=== PATIENT | female | born 1980 | race Caucasian/White ===

== ENCOUNTER 2018-06-14 14:50 | Inpatient (IN) | payer BC ==
[2018-06-14] MEDS ORDERED: Penicillin G Potassium IV* 5,000,000 UNITS in NS 0.9% 100 ML* 100 ML IVPB ONE (15:39)
[2018-06-14] MEDS ORDERED: Oxytocin in LR* 20 UNITS/1,000 ML BAG IVPB SCH ×2 (16:00→23:00)
[2018-06-14 16:23] LABS: ABS Basophils 0.1 10^3/ul (0-0.2); ABS Eosinophils 0.1 10^3/ul (0-0.6); ABS Lymphocytes 2.2 10^3/ul (1.0-4.8); ABS Monocytes 0.6 10^3/ul (0-0.8); ABS Neutrophils 9.4 10^3/ul (1.5-7.7); ABS Nucleated RBC 0 10^3/ul; Eosinophil % 0.4 % (0-6); Hematocrit 35 % (35-47); Hemoglobin 12.5 g/dl (12.0-16.0); Lymphocyte % 17.8 % (25-47); Mean Corpuscular HGB Conc 36 g/dl (31-36); Mean Corpuscular Hemoglobin 32 pg (27-31); Mean Corpuscular Volume 91 fL (80-97); Mean Platelet Volume 7.8 fL (7.4-10.4); Nucleated Red Blood Cells % 0; Platelet Count 310 10^3/ul (150-450); Red Blood Count 3.86 10^6/ul (4.00-5.40); Red Cell Distribution Width 14 % (10.5-15); White Blood Count 12.4 10^3/ul (3.5-10.8)
--- NOTE | 2018-06-14 18:27 | HP ---
General Information - Reason for Visit Scheduled induction of labor for postdates - General Information Maternal Age: 37 Grav: 3 Para: 2 SAB: 0 IEA: 0 Estimated Due Date: 06/06/18 Determined By: LMP Maternal Blood Type and Rh: A Positive - Results this Serology/RPR Result: Non-Reactive Rubella Result: Immune HBsAg Result: Negative HIV Result: Negative GBS Culture Result: Positive Past Medical History Delivery History: Hx Uncomplicated Vaginal Delivery, See Records Pertinent Past Medical History: See Records - essential thrombocythemia Pertinent Past Surgical History: None Pertinent Family History: See Records - father- myelofibrosis, Sister , Hodgkin's Lymphoma - Antepartal Records Antepartal Records: Reviewed, Complicated by: - essential thrombocythemia, GBS bacteriuria Review of Systems Constitutional: Comfortable CV Complaint: No Respiratory: Shortness of Breath: No Gastrointestinal: No Nausea/Vomiting, Normal Bowel Movement Genitourinary: No Dysuria, No Bleeding, No Leaking Fluid Musculoskeletal: No Complaint, No Epigastric Pain Neurological: No Headache, No Visual Changes Movement: Normal Exam Allergies/Adverse Reactions: Allergies No Known Allergies Allergy (Verified 06/14/18 15:33) T-97.4, P-65, R-18, BP-100/57, O2-99% Lab Values - Entire Visit: Laboratory Tests 06/14/18 06/14/18 16:10 16:10 WBC 12.4 H RBC 3.86 L Hgb 12.5 Hct 35 MCV 91 MCH 32 H MCHC 36 RDW 14 Plt Count 310 MPV 7.8 Neut % (Auto) 75.9 Lymph % (Auto) 17.8 L Aiken % (Auto) 5.2 Eos % (Auto) 0.4 Baso % (Auto) 0.7 Absolute Neuts (auto) 9.4 H Absolute Lymphs (auto) 2.2 Absolute Monos (auto) 0.6 Absolute Eos (auto) 0.1 Absolute Basos (auto) 0.1 Absolute Nucleated RBC 0 Nucleated RBC % 0 Blood Type A Positive Antibody Screen Negative - Measurements Height: 5 ft 10 in Weight: 82.554 kg Weight in lbs: 182.651015 Body Mass Index (BMI): 26.1 Pre- Weight: 70.307 kg Weight Gained This : 27 lbs and 0 ozs - Exam Breast: Breast Exam Deferred CVA: No CVA Tenderness Extremities: No Edema Heart: Normal Rhythm/Heart Sounds HEENT: No Significant Findings Lungs: Clear Bilaterally Rectal: Rectal Exam Deferred Reflexes: DTR 2+ Thyroid: No Thyromegaly - Abdominal Exam Abdomen Exam: Non-Tender, Fundal Height Consistent with Dates - Ultrasound/Biophysical Profile Ultrasound Status: Not Done Targeted Exam Findings See L&D Outpatient Visit Provider Note for Findings: N/A Estimated Weight: 8.5# Cervical Exam: 2cm Effacement: 80% Station: -1 Presenting Part: Vertex Membrane Status: Intact Bleeding/Discharge: None EFM Findings - External Monitor Findings Baseline Heart Rate: 140 External Monitor Findings: Accelerations Present, No Pattern of Variable or Late Decelerations, Variability Moderate, Baseline Stable Contractions: Irregular, Mild, 45-90 Seconds - on arrival occasional irregular mild ctx Assessment/Plan - Assessment 37 year old at 41 1/7 weeks gestation here for postdates induction of labor , with no evidence of acidemia. Pt history significant for essential thrombocythemia. - Obstetrical Risk Factors Obstetrical Risk Factors: GBS Positive - Plan Plan: Admit - Anticipate Vaginal Delivery
[2018-06-14] MEDS ORDERED: OBEPIDURAL* 250 ML EPIDURAL ONE (19:22)
[2018-06-14] MEDS ORDERED: Famotidine TAB* 20 MG PO PRN (20:06)
[2018-06-14] MEDS ORDERED: Sodium Citrate/Citric Acid* 15 ML UDC PO PRN (20:06)
[2018-06-14] MEDS ORDERED: EPHEDrine (Pressors)* 50 MG/ML VIAL IV PUSH PRN ×2 (20:06)
[2018-06-14] MEDS ORDERED: Phenylephrine IV* 40 MCG/ML 10 ML SYRINGE IV PUSH PRN ×2 (20:06)
--- NOTE | 2018-06-14 20:06 | PN ---
Progress Note - Progress Note Date of Service: 06/14/18 SOAP: Subjective: [Pt increasingly uncomfortable with ctx. Requests epidural. Denies urge to push. ] Objective: [FHR Category I Baseline 135, mod variability, + accels, occasional isolated variable decel UC's Q 2-3 minutes, moderate to strong Membranes intact Pitocin at 8 mu/min] Assessment: [37 year old at 41 1/7 weeks gestation entering active labor, requesting epidural] Plan: [Anesthesia requested for epidural placement Pitocin turned off while awaiting epidural, will restart as needed Will consider AROM once second dose of PCN infused for GBS positive status Discussed essential thrombocytopenia with Dr. Moya. Per pt her family sociologist in [place] recommends starting Lovenox 40mg daily for 6 weeks starting [address] Moya in agreement with this plan. ]
[2018-06-14] MEDS: Penicillin G Potassium IV* 2,500,000 UNITS in NS 0.9% 100 ML* 100 ML IVPB SCH (20:19)
[2018-06-14] MEDS ORDERED: OBEPIDURAL* 250 ML EPIDURAL SCH (21:00)
[2018-06-14] MEDS ORDERED: Dibucaine 1% 28.35 GM TUBE PR PRN (22:21)
[2018-06-14] MEDS ORDERED: Tetan/Diph/Pertus SYR(Tdap)* 0.5 ML SYR(BOOSTRIX) use SYR IM ONE (22:21)
[2018-06-14] MEDS ORDERED: Glycerin ADULT SUPP PR PRN (22:21)
[2018-06-14] MEDS ORDERED: Acetaminophen TAB* 325 MG PO PRN (22:21)
[2018-06-14] MEDS ORDERED: Witch Hazel PAD* JAR TOPICAL PRN (22:21)
[2018-06-14] MEDS ORDERED: Ibuprofen TAB* 600 MG PO PRN (22:21)
--- NOTE | 2018-06-14 22:43 | PROCNOTE ---
[facility] OB: Delivery Note - Delivery A Date of : 06/14/18 Time of : 21:26 [place] Sex: Male Weight at : 3.957 kg Score 1 Minute: 8 Score 5 Minutes: 9 Gestational Age in Weeks and Days at Delivery: 41 Weeks and 1 Days Delivery Method: Spontaneous Vaginal Labor: Induced Did Patient attempt ?: N/A, No Previous Amniotic Fluid: Clear Estimated Blood Loss: 300 Anesthesia/Analgesia: CEI for Labor Delivered By: Melissa Marinelli - Nursery Level of Nursery: Regular/Bedside - Perineum Perineal Injury: 1st Degree Perineal Repair: By Delivering Practioner - Events Delivery Events of Note: Pitocin During Labor - Additional Delivery Notes Additional Delivery Notes: Pt arrived for scheduled induction of labor for post-dates at 41 1/7 weeks gestation. On arrival pt found to be favorable for Pitocin induction and Pitocin initiated. GBS prophylaxis initiated at that time as well. Pt soon became uncomfortable and, after using the tub for a little while, requested and received an epidural, which provided good pain relief. After the epidural was placed pt felt more pressure and was found to have dilated to an anterior lip. A short time later AROM performed to clear fluid. Soon after, pt began to push with good effort. Baby came to , followed by slow controlled delivery of the head, OA to SURJIT. Shoulders followed easily. Loose nuchal cord present x1 , reduced after . to maternal abdomen with lusty cry, heart rate > 100. Cord clamped x2 after pulsation ceased, cut by 's father. Placenta soon delivered, mauricio side, intact, with gentle cord traction. Perineum with first degree laceration, repaired with 3-0 Rapide resulting in good hemostasis and tissue approximation. Infant breastfed shortly after . At this time, mother and baby stable, anticipate normal course.
[2018-06-15 06:37] LABS: ABS Basophils 0.1 10^3/ul (0-0.2); ABS Eosinophils 0.1 10^3/ul (0-0.6); ABS Lymphocytes 2.4 10^3/ul (1.0-4.8); ABS Neutrophils 11.7 10^3/ul (1.5-7.7); ABS Nucleated RBC 0 10^3/ul; Eosinophil % 0.4 % (0-6); Hematocrit 33 % (35-47); Hemoglobin 11.4 g/dl (12.0-16.0); Lymphocyte % 15.4 % (25-47); Mean Corpuscular HGB Conc 35 g/dl (31-36); Mean Corpuscular Hemoglobin 32 pg (27-31); Mean Corpuscular Volume 91 fL (80-97); Mean Platelet Volume 7.9 fL (7.4-10.4); Nucleated Red Blood Cells % 0; Platelet Count 295 10^3/ul (150-450); Red Blood Count 3.61 10^6/ul (4.00-5.40); Red Cell Distribution Width 14 % (10.5-15); White Blood Count 15.2 10^3/ul (3.5-10.8)
[2018-06-15] MEDS: Docusate CAP* 100 MG PO SCH ×3 (09:27→21:18)
[2018-06-15] MEDS: Ferrous Gluconate TAB* 324 MG TAB PO SCH ×2 (09:27→21:18)
[2018-06-15] MEDS: Penicillin G Potassium IV* 2,500,000 UNITS in NS 0.9% 100 ML* 100 ML IVPB SCH (09:38)
[2018-06-15] MEDS ORDERED: Enoxaparin(*) 40 MG/0.4 ML SYR SUBCUT SCH (21:00)
[2018-06-16 07:26] VITALS: BP 109/68
[2018-06-16] MEDS: Docusate CAP* 100 MG PO SCH ×2 (10:39→14:27)
== END 2018-06-16 16:05 | disposition home or self-care (01) | DRG 560 ==
LOC: MCHOBOUT 14:50 → MCHOB 15:32
PROVIDERS: ADMIT Midwife; ATTEND Midwife
PROC: 10E0XZZ Delivery of Products of Conception, External Approach (ICD-10-PCS; principal; 2018-06-14)
PROC: 3E033VJ Introduction of Other Hormone into Peripheral Vein, Percutaneous Approach (ICD-10-PCS; 2018-06-14)
PROC: 0HQ9XZZ Repair Perineum Skin, External Approach (ICD-10-PCS; 2018-06-14)
DX: O48.0 Post-term pregnancy (principal); Z37.0 Single live birth; O99.824 Streptococcus B carrier state complicating childbirth; O70.0 First degree perineal laceration during delivery; O69.81X0 Labor and delivery complicated by cord around neck, without compression, not applicable or unspecified; Z3A.41 41 weeks gestation of pregnancy
CPT/HCPCS: 36415; 85025; 86850; 86900; 86901; A9270-GY; J1650; J2540